=== PATIENT | male | born 1980 | race Caucasian/White ===

== ENCOUNTER 2016-05-19 13:52 | Emergency (ER) | payer OTHER ==
[~2016-05-19] VITALS: Ht 188 cm; Wt 122.5 kg
--- NOTE | 2016-05-19 13:55 | NUR ---
Olvin at bedside for SOB, nausea. Patient to ER bed 3 to gown for evaluation. Side rails up. Report given to Theresa OSORIO.
[2016-05-19 13:57] VITALS: BP 143/99; PULSE 73; RESP 16; TEMP 97.1; O2SAT 98
--- NOTE | 2016-05-19 14:05 | NUR ---
Patient in stable condition, alert and oriented x4. States he began feeling dull chest pain on left side of chest that began this morning and has vomited several times. Denies nausea/vomiting at this time. No other complaints/injuries per patient or noted.
[2016-05-19 14:17] LABS: BASOPHILS # (AUTO) 0.1 K/uL (0.0-0.2); BASOPHILS % (AUTO) 0.9 % (0.0-2.0); EOSINOPHILS # (AUTO) 0.1 K/uL (0.0-0.4); EOSINOPHILS % (AUTO) 1.4 % (0.0-4.0); HEMATOCRIT 49.1 % (36-54); HEMOGLOBIN 16.2 g/dL (14.0-18.0); LYMPHOCYTES # (AUTO) 1.7 K/uL (1.0-5.5); LYMPHOCYTES % (AUTO) 22.3 % (20.5-51.5); MEAN CORPUSCULAR HEMOGLOBIN 31 pg (27-31); MEAN CORPUSCULAR HGB CONC 33 % (32-36); MEAN CORPUSCULAR VOLUME 94 fL (79.0-98.0); MONOCYTES # (AUTO) 0.5 K/uL (0.0-1.0); NEUTROPHILS # (AUTO) 5.2 K/uL (1.8-7.7); NEUTROPHILS % (AUTO) 69.4 % (40.0-70.0); PLATELET COUNT (AUTO) 246 K/uL (130-430); RED BLOOD CELL COUNT(AUTO) 5.23 MIL/uL (4.2-6.2); RED CELL DISTRIBUTION WIDTH 12.7 % (9.0-15.0); WHITE BLOOD COUNT (AUTO) 7.6 K/uL (4.8-10.8)
[2016-05-19 14:31] LABS: ALBUMIN 4.6 g/dL (3.4-4.8); CALCIUM 9.8 mg/dL (8.4-11.0); CREATININE 1.06 mg/dL (0.55-1.30); TOTAL BILIRUBIN 0.6 mg/dL (0.0-1.0); TOTAL PROTEIN, SERUM 8.1 g/dL (6.4-8.3)
[2016-05-19] MEDS ORDERED: LORazepam 2 MG/ML VIAL (FOR ER USE) IM ONE (15:15)
[2016-05-19] MEDS ORDERED: ONDANSETRON 4 MG ODT TAB PO ONE (15:30)
[2016-05-19 17:40] VITALS: BP 115/64; PULSE 109; RESP 16; TEMP 98; O2SAT 97
--- NOTE | 2016-05-19 17:41 | NUR ---
Patient verbalized that he is taking an Uber home. Discussed at length that Ativan and driving is equivilant to DUI. Patient given written and verbal discharge instructions and verbalizes understanding. ER MD discussed with patient the results and treatment provided. Given copies of tests performed in ER. Patient in stable condition. ID arm band removed. Patient educated on pain management and to follow up with PMD. Pain Scale 0/10. Opportunity for questions provided and answered.
== END 2016-05-19 17:40 | disposition home or self-care (01) ==
LOC: SED 13:52
DX: F15.10 Other stimulant abuse, uncomplicated (principal); R03.0 Elevated blood-pressure reading, without diagnosis of hypertension; J45.909 Unspecified asthma, uncomplicated
CPT/HCPCS: 36415; 71010; 80053; 84484; 85025; 93005; 96372; 99285; J2060; Q0162

== ENCOUNTER 2016-09-14 23:57 | Emergency (ER) | payer OTHER ==
[~2016-09-14] VITALS: Ht 188 cm; Wt 122.5 kg
[2016-09-15] VITALS: BP 148/114; PULSE 102; RESP 22; TEMP 98.5; O2SAT 97
--- NOTE | 2016-09-15 | NUR ---
Placed in room 6 . Placed on surveillance monitor, blood pressure machine and pulse oximeter. To gown for exam. Side rails up. Report given to
--- NOTE | 2016-09-15 00:02 | NUR ---
EKG performed at BS by Beau. Physician given copy of EKG for review.
--- NOTE | 2016-09-15 00:08 | NUR ---
ER Dr. Gonzales at bedside examining patient.
--- NOTE | 2016-09-15 00:10 | NUR ---
Patient is ALOC x 4. Patient reports that he started to have chest pain a couple hours prior to entering the ED that radiates to his left shoulder. Patient denies any shortness of breath. Lungs are clear. Patient states "it feels like someone is kicking me." Pain 6/10. Patient does not appear to be in any distress at this time. No other complanits/injuries per patient or as noted.
[2016-09-15] MEDS ORDERED: LORazepam 2 MG/ML VIAL (FOR ER USE) IVP ONE (00:15)
--- NOTE | 2016-09-15 00:15 | NUR ---
# 20 gauge angiocath placed to Right Antecubital. Use of asceptic technique. Opsite placed over site. Blood return noted. Blood for lab drawn from site. Flushed with 10 cc of normal saline. No evidence of infiltration noted. Patient tolerated well.
[2016-09-15] MEDS ORDERED: ONDANSETRON HCL 4 MG/2 ML VIAL IVP ONE (00:30)
[2016-09-15 00:33] LABS: BASOPHILS # (AUTO) 0.1 K/uL (0.0-0.2); BASOPHILS % (AUTO) 0.9 % (0.0-2.0); EOSINOPHILS # (AUTO) 0.1 K/uL (0.0-0.4); EOSINOPHILS % (AUTO) 0.8 % (0.0-4.0); HEMATOCRIT 47.7 % (36-54); HEMOGLOBIN 15.8 g/dL (14.0-18.0); LYMPHOCYTES # (AUTO) 2.6 K/uL (1.0-5.5); LYMPHOCYTES % (AUTO) 31.8 % (20.5-51.5); MEAN CORPUSCULAR HEMOGLOBIN 30 pg (27-31); MEAN CORPUSCULAR HGB CONC 33 % (32-36); MEAN CORPUSCULAR VOLUME 92 fL (79.0-98.0); MONOCYTES # (AUTO) 0.6 K/uL (0.0-1.0); MONOCYTES % (AUTO) 7.3 % (1.7-9.3); NEUTROPHILS # (AUTO) 4.8 K/uL (1.8-7.7); NEUTROPHILS % (AUTO) 59.2 % (40.0-70.0); PLATELET COUNT (AUTO) 267 K/uL (130-430); RED BLOOD CELL COUNT(AUTO) 5.19 MIL/uL (4.2-6.2); RED CELL DISTRIBUTION WIDTH 12.9 % (9.0-15.0); WHITE BLOOD COUNT (AUTO) 8.2 K/uL (4.8-10.8)
[2016-09-15 00:34] LABS: ANION GAP 14 (5-15); CALCIUM 9.3 mg/dL (8.4-11.0); CHLORIDE 103 mmol/L (98-107); GLUCOSE 98 mg/dL (70-99); POTASSIUM 3.7 mmol/L (3.5-5.1); SODIUM SERUM 142 mmol/L (136-145); UREA NITROGEN, BLOOD 13 mg/dL (8-21)
[2016-09-15 00:37] LABS: GFR AFRICAN AMERICAN 97 mL/min (>90)
[2016-09-15 00:43] LABS: ALBUMIN 4.5 g/dL (3.4-4.8); ASPARTATE AMINOTRANSFERASE 25 U/L (10-37); TOTAL BILIRUBIN 0.4 mg/dL (0.0-1.0); TOTAL PROTEIN, SERUM 7.8 g/dL (6.4-8.3)
[2016-09-15 00:47] LABS: ALANINE AMINOTRANSFERASE 69 U/L (12-78); ALCOHOL, BLOOD 13 mg/dL (<10)
[2016-09-15 00:55] LABS: BILIRUBIN,URINE NEGATIVE (NEGATIVE); BLOOD, URINE NEGATIVE (NEGATIVE); CLARITY/URINE CLEAR (CLEAR); COLOR,URINE YELLOW (YELLOW); GLUCOSE,URINE NEGATIVE (NEGATIVE); KETONES,URINE NEGATIVE (NEGATIVE); LEUKOCYTE ESTERASE ,URINE NEGATIVE (NEGATIVE); NITRITE, URINE NEGATIVE (NEGATIVE); PROTEIN URINE 1+ (NEGATIVE)
[2016-09-15 01:09] LABS: BARBITURATE, URINE NEGATIVE (NEG <=200); BENZODIAZEPINE, URINE NEGATIVE (NEG <=150); METHAMPHETAMINES SCREEN,URINE NEGATIVE (NEG <=500); URINE AMPHETAMINE NEGATIVE (NEG <=500); URINE METHADONE NEGATIVE (NEG <=200)
[2016-09-15 01:10] LABS: CANNABINOID, URINE NEGATIVE (NEG <=50); COCAINE, URINE NEGATIVE (NEG <=150); OPIATE, URINE POSITIVE (NEG <=100); PHENCYCLIDINE SCREEN,URINE NEGATIVE (NEG <=25); UR TRICYCLIC ANTIDEPRESSANTS NEGATIVE (NEG <=300); URINE OXYCODONE SCREEN NEGATIVE (NEG <=100); URINE PROPOXYPHENE SCREEN NEGATIVE (NEG <=300)
[2016-09-15 01:28] VITALS: BP 136/82; PULSE 70; RESP 20; TEMP 98.5; O2SAT 97
--- NOTE | 2016-09-15 01:28 | NUR ---
Patient given written and verbal discharge instructions and verbalizes understanding. ER MD discussed with patient the results and treatment provided. Patient in stable condition. ID arm band removed. IV catheter removed intact and dressing applied, no active bleeding. No Rx given. Patient educated on pain management and to follow up with PMD in 2 days. Pain Scale 0/10. Opportunity for questions provided and answered.
== END 2016-09-15 01:28 | disposition home or self-care (01) ==
LOC: SED 23:57
DX: F41.9 Anxiety disorder, unspecified (principal); F11.10 Opioid abuse, uncomplicated; J45.909 Unspecified asthma, uncomplicated
CPT/HCPCS: 36415; 80053; 80307; 81003; 84484; 85025; 93005; 96374; 96375; 99285; G0482; J2060; J2405

== ENCOUNTER 2017-05-20 17:36 | Emergency (ER) | payer SELFPAY ==
[~2017-05-20] VITALS: Ht 188 cm; Wt 113.4 kg
[2017-05-20 17:45] VITALS: BP_SYST 136
[2017-05-20] MEDS ORDERED: LIDOCAINE 2%, 20 ML MDV IJ ONE (19:00)
[2017-05-20] MEDS ORDERED: BACITRACIN 1 GM OINT TP ONE (19:00)
[2017-05-20] MEDS ORDERED: DIPH-TET-PERTUS Vaccine 0.5 ML VIAL (ADACEL) IM ONE (19:00)
[2017-05-20 19:40] VITALS: BP_SYST 129
== END 2017-05-20 19:40 | disposition home or self-care (01) ==
LOC: SED 17:36
DX: S61.210A Laceration without foreign body of right index finger without damage to nail, initial encounter (principal); J45.909 Unspecified asthma, uncomplicated; R03.0 Elevated blood-pressure reading, without diagnosis of hypertension; Z90.49 Acquired absence of other specified parts of digestive tract; W45.8XXA Other foreign body or object entering through skin, initial encounter; Y93.89 Activity, other specified; Y92.89 Other specified places as the place of occurrence of the external cause; Y99.8 Other external cause status
CPT/HCPCS: 12001; 90471; 90715; 99283; J2001

== ENCOUNTER 2017-08-18 21:55 | Emergency (ER) | payer OTHER ==
[~2017-08-18] VITALS: Ht 188 cm; Wt 117.9 kg
[2017-08-18 22:02] VITALS: BP_SYST 116
[2017-08-18] MEDS ORDERED: KETOROLAC TROMETHAMINE 30 MG VIAL IM ONE (22:15)
[2017-08-18 22:39] VITALS: BP_SYST 122
== END 2017-08-18 22:39 | disposition home or self-care (01) ==
LOC: SED 21:55
DX: M25.561 Pain in right knee (principal); J45.909 Unspecified asthma, uncomplicated; F41.9 Anxiety disorder, unspecified; Z90.49 Acquired absence of other specified parts of digestive tract; R03.0 Elevated blood-pressure reading, without diagnosis of hypertension
CPT/HCPCS: 29505; 96372; 99283; J1885